=== PATIENT | female | born 2000 | race Two or more races ===

== ENCOUNTER 2020-12-23 08:00 | Outpatient (CLI) | payer OTHER ==
[~2020-12-23 08:00] MED LIST: DESPEC DM SYRU473 ML PO
== END 2020-12-23 08:30 | disposition home or self-care (01) ==
LOC: PPH VACUNA 08:00
DX: Z23 Encounter for immunization (principal)

== ENCOUNTER 2021-01-12 08:00 | Outpatient (CLI) | payer OTHER | END 2021-01-12 08:30 | disposition home or self-care (01) | LOC: PPH VACUNA 08:00 | DX: Z23 Encounter for immunization (principal) ==

== ENCOUNTER 2021-03-13 09:35 | Emergency (ER) | payer OTHER ==
[~2021-03-13] VITALS: Ht 149.9 cm; Wt 49.9 kg
[2021-03-13] MEDS ORDERED: INTESTINEX680 M1 PO ×2 (16:55→16:56)
[2021-03-13] MEDS ORDERED: ZITHROMAX500 MG PO ×2 (16:55→16:56)
== END 2021-03-13 18:00 | disposition home or self-care (01) ==
LOC: EMR PED 09:35
DX: A49.3 Mycoplasma infection, unspecified site (principal); Z03.818 Encounter for observation for suspected exposure to other biological agents ruled out